=== PATIENT | male | born 1980 ===

== ENCOUNTER 2025-02-01 20:37 | Emergency (ER) | payer SELFPAY ==
[~2025-02-01] VITALS: Ht 170.2 cm; Wt 81.6 kg
[2025-02-01 22:11] LABS: *BILIRUBIN,URIN NEGATIVE (NEGATIVE); *BLOOD, URINE NEGATIVE (NEGATIVE); *CLARITY,URINE CLEAR (CLEAR); *COLOR,URINE YELLOW (YELLOW); *KETONES,URINE NEGATIVE (NEGATIVE); *PROTEIN,URINE NEGATIVE (NEGATIVE); *UROBILINOGEN,URINE 0.2 E.U./dl (NORMAL); LEUKOCYTE ESTERASE ,URINE NEGATIVE (NEGATIVE); NITRITE, URINE NEGATIVE (NEGATIVE); UGLUCOSE NEGATIVE (NEGATIVE)
[2025-02-01 22:19] LABS: PLATELET COUNT (AUTO) 170 K/uL (152-348); RED BLOOD CELL COUNT(AUTO) 5.15 MIL/uL (4.06-5.63); RED CELL DISTRIBUTION WIDTH 15.1 % (12.1-16.2); WHITE BLOOD COUNT (AUTO) 8.6 K/uL (3.6-10.2)
[2025-02-01 22:26] LABS: CREATININE 0.6 mg/dL (0.6-1.3); SODIUM SERUM 141 mmol/L (136-145); UREA NITROGEN, BLOOD 8 mg/dL (7-18)
[2025-02-01 22:31] LABS: ASPARTATE AMINOTRANSFERASE 13 U/L (15-37); TOTAL PROTEIN, SERUM 7.2 g/dL (6.4-8.2)
[2025-02-01] MEDS: MORPHINE SULFATE 4 MG/1 ML DISP.SYRIN IV ONE (23:13)
[2025-02-01] MEDS: IV NS 1000 ML 1,000 ML IV ONE (23:13)
[2025-02-01] MEDS: ONDANSETRON 4 MG/2 ML VIAL IV ONE (23:13)
[2025-02-01] MEDS ORDERED: IOHEXOL 300MG/ML 100 ML INFUS..BTL ONE (23:35)
[2025-02-01] MEDS ORDERED: IV NORMAL SALINE 250 ML IV ONE (23:52)
[2025-02-02 02:00] VITALS: BP 140/79
[2025-02-02] MEDS ORDERED: MORPHINE SULFATE 4 MG/1 ML DISP.SYRIN ONE (02:26)
[2025-02-02] MEDS: MORPHINE SULFATE 4 MG/1 ML DISP.SYRIN IV ONE (02:29)
[2025-02-02] MEDS ORDERED: ONDA-243 PO (02:50)
[2025-02-02] MEDS ORDERED: HYDR-3980 PO (02:50)
[2025-02-02 03:22] VITALS: BP 130/70; TEMP 98; O2SAT 100
== END 2025-02-02 03:00 | disposition home or self-care (01) ==
LOC: ER 20:51
DX: R10.9 Unspecified abdominal pain (principal); R03.0 Elevated blood-pressure reading, without diagnosis of hypertension; R11.0 Nausea
CPT/HCPCS: 99285; 74177; 96374; 96375; 80076; 80048; 81003; 83690; 85025; 36415; 96376; 76705; J2405; Q9967; J2270 ×2; J7040; A4606; A4663